=== PATIENT | female | born 1925 | race Caucasian/White ===

== ENCOUNTER 2016-05-17 09:17 | Emergency (ER) | payer MEDICARE ==
[2016-05-17] MEDS ORDERED: Aspirin Low Dose CHEW TAB* 81 MG PO ONE (09:27)
[2016-05-17 09:56] LABS: Hematocrit 40 % (35-47); Hemoglobin 13.2 g/dl (12.0-16.0); Mean Corpuscular HGB Conc 33 g/dl (31-36); Mean Corpuscular Hemoglobin 28 pg (27-31); Mean Corpuscular Volume 85 fL (80-97); Mean Platelet Volume 9 um3 (7.4-10.4); Red Blood Count 4.73 10^6/ul (4.0-5.4); Red Cell Distribution Width 14 % (10.5-15); White Blood Count 5.9 10^3/ul (3.5-10.8)
[2016-05-17 10:16] LABS: Albumin 3.5 g/dL (3.2-5.2); BUN/Creatinine Ratio 20.7 (8-20); Calcium 9.3 mg/dL (8.6-10.3); EGFR African American 84.6 (>60); EGFR Non-African American 65.8 (>60); Globulin 3.6 g/dL (2-4); Potassium 3.8 mmol/L (3.5-5.0); Total Bilirubin 0.5 mg/dL (0.2-1.0); Total Protein 7.1 g/dL (6.4-8.9)
--- NOTE | 2016-05-17 10:26 | RAD ---
INDICATION: Nausea COMPARISON: Similar chest x-ray dated April 11, 2015 TECHNIQUE: Single AP portable view of the chest was obtained. FINDINGS: Image quality is compromised due to the relative inferiority of a portable chest x-ray. There is mild cardiomegaly, ectatic change of the thoracic aorta and mild calcification overlying the arch of the aorta. This appearance is similar to the most recent previous chest x-ray. The lungs are grossly clear. There is no evidence of a large pleural effusion. Visualized bones are normal for the patient's age. IMPRESSION: No radiographic evidence for acute cardiopulmonary abnormality on this portable chest x-ray.
[2016-05-17 10:44] VITALS: BP 165/72
--- NOTE | 2016-05-17 18:12 | ED ---
Humble Parra Billy, scribed for Luis F Mehta MD on 05/17/16 at 1034 . Complex/Multi-Sys Presentation - HPI Summary HPI Summary: Patient is an 89 year-old female sent [place] [facility]. Stewart and Dr. Barragan today for concern of irregular heartbeat at Dr. Barragan's office today. She was being seen by Dr. Barragan to have a cyst removed from her neck when he noticed the arrhythmia. However, in the ED, the patient denies any chest pain, shortness of breath, dizziness, nausea, vomiting, or diarrhea at any point today. She reports that she is completely asymptomatic. She takes 81mg ASA daily but otherwise denies any bloodthinner use. - History Of Current Complaint Chief Complaint: EDDysrhythmPalp Time Seen by Provider: 05/17/16 10:14 Hx Obtained From: Patient Onset/Duration: Resolved Severity Currently: None Location: Negative Aggravating Factor(s): none Alleviating Factor(s): none Associated Signs And Symptoms: Negative: Dizziness, SOB, Chest Pain, Nausea, Vomiting, Diarrhea - Allergies/Home Medications Allergies/Adverse Reactions: Allergies Allergy/AdvReac Type Severity Reaction Status Date / Time Bee Venom Allergy Severe Swelling Verified 01/11/15 12:56 Loteprednol [From Alrex] Allergy Severe Difficulty Verified 01/11/15 12:56 Breathing Ranitidine Allergy Severe Difficulty Verified 01/11/15 12:56 Breathing Sulfa Antibiotics Allergy GI Upset Verified 01/11/15 12:56 Ciprofloxacin [From Cipro] AdvReac Intermediate GI Upset Verified 01/11/15 12:56 PMH/Surg Hx/FS Hx/Imm Hx Endocrine/Hematology History: Denies: Hx Anticoagulant Therapy, Hx Diabetes, Hx Thyroid Disease Cardiovascular History: Reports: Hx Angina, Hx Coronary Artery Disease - 2010 [place]ON[place] [facility] [place] STATES NO PROBLEMS SINCE, Hx Hypercholesterolemia - HLD, Hx Hypertension - ON DAILY MEDS, Hx Myocardial Infarction Comment Only: Other Cardiovascular Problems/Disorders - FOLLOWED BY DR STEWART Respiratory History: Denies: Hx Asthma, Hx Chronic Obstructive Pulmonary Disease (COPD) GI History: Reports: Hx Diverticulosis, Hx Gall Bladder Disease, Hx Gastroesophageal Reflux Disease - TAKES RELIF MED PRN Denies: Hx Ulcer Comment Only: Other GI Disorders - Hx OF DIVERTICULITIS, 1989 COLOSTOMY 1990 REVERSAL History: Reports: Hx Renal Disease - hx abnormal gfr Sensory History: Reports: Hx Hearing Aid - BOTH EARS WILL BE WEARING DAY OF SURGERY Comment Only: Hx Contacts or Glasses - READING Opthamlomology History: Comment Only: Hx Contacts or Glasses - READING Neurological History: Denies: Hx Dementia Psychiatric History: Reports: Hx Anxiety - HAS Rx AVAILABLE PRN USE Denies: Hx Substance Abuse - Cancer History Hx Chemotherapy: No Hx Radiation Therapy: No - Surgical History Surgery Procedure, Year, and Place: 1939 APPENDECTOMY [facility]. 1958 hysterectomy,. 1989 & 1990bowel resection with colostomy & reversal. 1996 traci. UBTOTAL THYROIDECTOMY. 2009 CARDIAC STENT [facility] Hx Anesthesia Reactions: No - Immunization History Date of Tetanus Vaccine: Unk Date of Influenza Vaccine: Fall 2013 Infectious Disease History: No Infectious Disease History: Denies: Hx Clostridium Difficile, Hx Hepatitis, Hx Human Immunodeficiency Virus (HIV), Hx Shingles, Hx Tuberculosis, History Other Infectious Disease, Traveled Outside the [place] in Last 30 Days - Family History Known Family History: Positive: Cardiac Disease, Hypertension - Social History Alcohol Use: None Substance Use Type: Reports: None Smoking Status (MU): Never Smoked Tobacco Have You Smoked in the Last Year: No Review of Systems Negative: Chest Pain Negative: Shortness Of Breath Negative: Vomiting, Diarrhea, Nausea All Other Systems Reviewed And Are Negative: Yes Physical Exam Triage Information Reviewed: Yes Vital Signs On Initial Exam: Initial Vitals Temp Pulse Resp BP Pulse Ox 97.1 F 91 15 152/81 100 05/17/16 09:20 05/17/16 09:20 05/17/16 09:20 05/17/16 09:20 05/17/16 09:20 Vital Signs Reviewed: Yes Appearance: Positive: Well-Appearing, No Pain Distress Skin: Positive: Warm, Skin Color Reflects Adequate Perfusion, Dry Head/Face: Positive: Normal Head/Face Inspection Eyes: Positive: Normal ENT: Positive: Other - Dry mucous membranes Neck: Positive: Supple, Nontender Respiratory/Lung Sounds: Positive: Clear to Auscultation Cardiovascular: Positive: RRR Abdomen Description: Positive: Nontender, Soft Musculoskeletal: Positive: Normal Neurological: Positive: Normal Psychiatric: Positive: Normal AVPU Assessment: Alert - [place] Coma Scale Coma Scale Total: 15 Diagnostics - Vital Signs Vital Signs Temp Pulse Resp BP Pulse Ox 05/17/16 10:00 93 20 161/73 98 05/17/16 09:35 100 153/105 96 05/17/16 09:34 104 94 05/17/16 09:20 97.1 F 91 15 152/81 100 - Laboratory Lab Results: Lab Results 05/17/16 05/17/16 05/17/16 Range/Units 09:46 09:46 09:46 WBC 5.9 (3.5-10.8) 10^3/ul RBC 4.73 (4.0-5.4) 10^6/ul Hgb 13.2 (12.0-16.0) g/dl Hct 40 (35-47) % MCV 85 (80-97) fL MCH 28 (27-31) pg MCHC 33 (31-36) g/dl RDW 14 (10.5-15) % Plt Count 264 (150-450) 10^3/ul MPV 9 (7.4-10.4) um3 Neut % (Auto) 63.8 (38-83) % Lymph % (Auto) 24.7 L (25-47) % [place] % (Auto) 8.6 (1-9) % Eos % (Auto) 2.0 (0-6) % Baso % (Auto) 0.9 (0-2) % Absolute Neuts (auto) 3.8 (1.5-7.7) 10^3/ul Absolute Lymphs (auto) 1.5 (1.0-4.8) 10^3/ul Absolute Monos (auto) 0.5 (0-0.8) 10^3/ul Absolute Eos (auto) 0.1 (0-0.6) 10^3/ul Absolute Basos (auto) 0.1 (0-0.2) 10^3/ul Absolute Nucleated RBC 0 10^3/ul Nucleated RBC % 0 Sodium 139 (133-145) mmol/L Potassium 3.8 (3.5-5.0) mmol/L Chloride 107 (101-111) mmol/L Carbon Dioxide 25 (22-32) mmol/L Anion Gap 7 (2-11) mmol/L BUN 17 (6-24) mg/dL Creatinine 0.82 (0.51-0.95) mg/dL Est GFR ( Amer) 84.6 (>60) Est GFR (Non-Af Amer) 65.8 (>60) BUN/Creatinine Ratio 20.7 H (8-20) Glucose 85 (70-100) mg/dL Lactic Acid 1.0 (0.5-2.0) mmol/L Calcium 9.3 (8.6-10.3) mg/dL Magnesium 2.0 (1.9-2.7) mg/dL Total Bilirubin 0.50 (0.2-1.0) mg/dL AST 15 (13-39) U/L ALT 13 (7-52) U/L Alkaline Phosphatase 71 (34-104) U/L Troponin I 0.00 (<0.04) ng/mL Total Protein 7.1 (6.4-8.9) g/dL Albumin 3.5 (3.2-5.2) g/dL Globulin 3.6 (2-4) g/dL Albumin/Globulin Ratio 1.0 (1-3) Result Diagrams: 05/17/16 09:46 05/17/16 09:46 Lab Statement: Any lab studies that have been ordered have been reviewed, and results considered in the medical decision making process. - Radiology CXR Xray Interpretation: No Acute Changes Radiology Interpretation Completed By: Radiologist - EKG 0927 EKG Interpretation: borderline tachycardia, sinus rhythm 95 bpm, PACs Complex Multi-Symp Course/Dx Course Of Treatment: Ms. Duong presented from Dr. Stewart's office with the concern that she had had a dysrythmia. She was asymptomatic here but had felt her heart race in the office. She was observed on the monitor and labs were normal. I tried to get ahold of Dr. Stewart but was unable. She was D/C'd to [facility] with him. - Diagnoses Provider Diagnoses: Palpitations Discharge - Discharge Plan Condition: Stable Disposition: HOME Patient Education Materials: Palpitations (ED) Referrals: Alberto Barragan MD [Primary Care Provider] - The documentation as recorded by the Humble elaine Billy accurately reflects the service I personally performed and the decisions made by me, Luis F Mehta MD.
== END 2016-05-17 10:43 | disposition home or self-care (01) ==
LOC: ED 09:17
DX: R00.2 Palpitations (principal); R42 Dizziness and giddiness; R06.02 Shortness of breath; R07.9 Chest pain, unspecified; R11.2 Nausea with vomiting, unspecified; R19.7 Diarrhea, unspecified
CPT/HCPCS: 36415; 71010; 80053; 83605; 83735; 84484; 85025; 93005; 99282; A9270-GY

== ENCOUNTER 2016-07-30 07:24 | Emergency (ER) | payer MEDICARE ==
[2016-07-30] MEDS ORDERED: NS 0.9% 1000 ML* 1,000 ML IV ONE (07:49)
[2016-07-30] MEDS ORDERED: Ondansetron INJ* 2 MG/ML VIAL IV ONE (07:49)
[2016-07-30] MEDS ORDERED: Aspirin Low Dose CHEW TAB* 81 MG PO ONE (07:49)
[2016-07-30 08:19] LABS: Hematocrit 42 % (35-47); Mean Corpuscular HGB Conc 33 g/dl (31-36); Mean Corpuscular Hemoglobin 28 pg (27-31); Mean Corpuscular Volume 84 fL (80-97); Mean Platelet Volume 11 um3 (7.4-10.4); Red Cell Distribution Width 14 % (10.5-15); White Blood Count 6.6 10^3/ul (3.5-10.8)
[2016-07-30 08:32] LABS: Albumin 3.9 g/dL (3.2-5.2); BUN/Creatinine Ratio 11.8 (8-20); Calcium 9.5 mg/dL (8.6-10.3); EGFR African American 92.4 (>60); EGFR Non-African American 71.8 (>60); Globulin 3.3 g/dL (2-4); Potassium 3.6 mmol/L (3.5-5.0); Total Bilirubin 0.7 mg/dL (0.2-1.0); Total Protein 7.2 g/dL (6.4-8.9); Troponin I 0.01 ng/mL (<0.04)
[2016-07-30] MEDS ORDERED: Iohexol 300* (CONTRAST) 10 ML SDV IV ONE (09:17)
--- NOTE | 2016-07-30 09:45 | RAD ---
Indication: Chest pain, atrial fibrillation. Single frontal view of the chest performed at 0820 hours was reviewed. Comparison is made with previous exam dated May 17, 2016. No mediastinal shift is noted. Heart is of normal size and configuration. Lung yarbrough appear clear. There is likely prominent costochondral calcifications in the right base. IMPRESSION: NO ACTIVE CARDIOPULMONARY DISEASE IS NOTED.
[2016-07-30] MEDS ORDERED: Iohexol 350* (CONTRAST) 500 ML MDV IV ONE (10:56)
--- NOTE | 2016-07-30 11:41 | RAD ---
Indication: Shortness of breath, elevated d-dimer, abdominal pain. Contrast: Administered 72.0 ml of Contrast -- mgi/ml. CTA of the chest was performed after IV contrast administration. Coronal and sagittal reconstructed images were obtained. The pulmonary arterial tree is well opacified. There are no filling defects present to suggest pulmonary embolus. There is cardiomegaly without evidence of pericardial effusion. The left lobe of the thyroid is enlarged. The heart demonstrates no pericardial effusion. Calcification of the left anterior descending branch of the left coronary artery is noted. The trachea and major bronchi appear patent. The lung aggarwal demonstrate no evidence of alveolar consolidation. Small nodule is noted in the right middle lobe measuring 3 mm. Scarring is noted in the left base posteriorly. Additional nodule is noted in the lingula measuring 5 mm. These were likely present on previous exam of March 07, 2010. Calcified granuloma is noted overlying the right lower lobe just above the right hemidiaphragm. This is unchanged from previous exam. There is no mediastinal or hilar adenopathy. There may be an axial-type hiatal hernia noted. The bony structures demonstrates compression fracture of T11. Age of this is undetermined. This has occurred since March 07, 2010. This compression of approximately 50%. CT of the abdomen and pelvis demonstrates liver to be normal in size. Prominent intrahepatic ducts is noted likely due to postcholecystectomy state. The gallbladder has been resected. The common duct is prominent measuring up to 8 mm. The pancreas demonstrates no mass or pancreatic ductal dilatation. The spleen is normal in size. No adrenal lesions are noted. The kidneys demonstrate symmetric nephrograms. Atherosclerotic aorta is noted. The aorta and inferior vena cava are otherwise unremarkable with no retroperitoneal lymphadenopathy. The lumbar spine is grossly unremarkable aside from multilevel degenerative disc disease. CT of the pelvis demonstrates contrast in the right colon. No dilated loops of bowel are present. No hernias are noted. Patient has had prior partial colectomy. Anastomotic clips are noted in the left lower quadrant. Diverticulosis without definite evidence of diverticulitis is noted. IMPRESSION: NO EVIDENCE OF PULMONARY EMBOLUS IS NOTED. 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 ABDOMEN AND PELVIS DEMONSTRATES NO EVIDENCE OF BOWEL OBSTRUCTION. POSTOPERATIVE CHANGES ARE NOTED IN THE LEFT.
[2016-07-30 13:16] VITALS: BP 134/82
--- NOTE | 2016-07-30 16:53 | ED ---
Medhat Parra Michael, scribed for Britt Garrett MD on 07/30/16 at 0806 . HPI Chest Pain - HPI Summary HPI Summary: 89 y/o female was BIBA to the ED presenting with intermittent episodes of mid- sternal CP that started this morning. Currently at the ED, the pt states the CP has alleviated. She also c/o intermittent episodes of nausea daily for the past 2 weeks, abd pain with palpation, and diaphoresis. The pt denies vomiting. The PMHx is significant for [place]-stent x1 2010 and HTN. The pt's PCP is Dr. Barragan and her finisher denture is Dr. Stewart. - History of Current Complaint Chief Complaint: EDChestPainROMI Time Seen by Provider: 07/30/16 07:49 Hx Obtained From: Patient, EMS, Medical Records Onset/Duration: Started Hours Ago, Still Present Timing: Intermittent, Lasting Hours Initial Severity: Mild Current Severity: None Pain Intensity: 0 Pain Scale Used: 0-10 Numeric Chest Pain Location: Mid Sternal Chest Pain Radiates: No Character: Pressure/Squeezing Aggravating Factor(s): Nothing Alleviating Factor(s): Nothing Associated Signs and Symptoms: Positive: Chest Pain, Nausea, Abdominal Pain. Negative: Vomiting - Allergy/Home Medications Allergies/Adverse Reactions: Allergies Allergy/AdvReac Type Severity Reaction Status Date / Time Bee Venom Allergy Severe Swelling Verified 07/30/16 07:57 Loteprednol [From Alrex] Allergy Severe Difficulty Verified 07/30/16 07:57 Breathing Ranitidine Allergy Severe Difficulty Verified 07/30/16 07:57 Breathing Sulfa Antibiotics Allergy GI Upset Verified 07/30/16 07:57 Ciprofloxacin [From Cipro] AdvReac Intermediate GI Upset Verified 07/30/16 07:57 Home Medications: Home Medications Citalopram TAB* [Celexa TAB*] 10 mg PO DAILY 07/30/16 [History Confirmed ] Trimethoprim TAB* 100 mg PO DAILY 07/30/16 [History Confirmed 07/30/16] PMH/Surg Hx/FS Hx/Imm Hx Previously Healthy: No Endocrine/Hematology History: Denies: Hx Anticoagulant Therapy, Hx Diabetes, Hx Thyroid Disease Cardiovascular History: Reports: Hx Angina, Hx Coronary Artery Disease - 2010 CORONARY STENT [facility] [place] STATES NO PROBLEMS SINCE, Hx Hypercholesterolemia - HLD, Hx Hypertension - ON DAILY MEDS, Hx Myocardial Infarction Comment Only: Other Cardiovascular Problems/Disorders - FOLLOWED BY DR STEWART Respiratory History: Denies: Hx Asthma, Hx Chronic Obstructive Pulmonary Disease (COPD) GI History: Reports: Hx Diverticulosis, Hx Gall Bladder Disease, Hx Gastroesophageal Reflux Disease - TAKES RELIEF MED PRN Denies: Hx Ulcer Comment Only: Other GI Disorders - Hx OF DIVERTICULITIS, 1989 COLOSTOMY 1990 REVERSAL History: Reports: Hx Renal Disease - hx abnormal gfr Sensory History: Reports: Hx Hearing Aid - BOTH EARS WILL BE WEARING DAY OF SURGERY Comment Only: Hx Contacts or Glasses - READING Opthamlomology History: Comment Only: Hx Contacts or Glasses - READING Neurological History: Denies: Hx Dementia Psychiatric History: Reports: Hx Anxiety - HAS Rx AVAILABLE PRN USE Denies: Hx Substance Abuse - Cancer History Hx Chemotherapy: No Hx Radiation Therapy: No - Surgical History Surgery Procedure, Year, and Place: 1939 APPENDECTOMY [facility]. 1958 hysterectomy,. 1989 & 1990bowel resection with colostomy & reversal. 1996 [facility]. UBTOTAL THYROIDECTOMY. 2009 CARDIAC STENT [facility] Hx Anesthesia Reactions: No - Immunization History Date of Tetanus Vaccine: Unk Date of Influenza Vaccine: Fall 2013 Infectious Disease History: No Infectious Disease History: Denies: Hx Clostridium Difficile, Hx Hepatitis, Hx Human Immunodeficiency Virus (HIV), Hx Shingles, Hx Tuberculosis, History Other Infectious Disease, Traveled Outside the in Last 30 Days - Family History Known Family History: Positive: Cardiac Disease, Hypertension - Social History Occupation: Retired Lives: Alone Alcohol Use: None Substance Use Type: Reports: None Smoking Status (MU): Never Smoked Tobacco Have You Smoked in the Last Year: No Review of Systems Positive: Skin Diaphoresis Positive: Chest Pain Respiratory: Negative Positive: Abdominal Pain, Nausea. Negative: Vomiting Genitourinary: Negative Positive: Other - diaphoresis Positive: Headache Psychological: Normal All Other Systems Reviewed And Are Negative: Yes Physical Exam Triage Information Reviewed: Yes Vital Signs On Initial Exam: Initial Vitals Temp Pulse Resp BP Pulse Ox 97.8 F 103 16 163/74 97 07/30/16 07:26 07/30/16 07:26 07/30/16 07:26 07/30/16 07:26 07/30/16 07:26 Vital Signs Reviewed: Yes Appearance: Positive: No Pain Distress, Well-Nourished, Ill-Appearing Skin: Positive: Diaphoretic Head/Face: Positive: Normal Head/Face Inspection Eyes: Positive: Conjunctiva Clear ENT: Positive: Normal ENT inspection, Hearing grossly normal. Negative: Muffled /hoarse voice Neck: Positive: Supple Respiratory/Lung Sounds: Positive: Clear to Auscultation, Decreased Breath Sounds - left base Cardiovascular: Positive: RRR, Pulses are Symmetrical in both Upper and Lower Extremities, Other - a-fib. Negative: Murmur Abdomen Description: Positive: Soft, Other: - mild diffuse tenderness on palpation. Negative: CVA Tenderness (R), CVA Tenderness (L), Distended, Guarding, Splenomegaly Bowel Sounds: Positive: Present Musculoskeletal: Positive: Normal, Strength/ROM Intact Neurological: Positive: Sensory/Motor Intact, Alert, Oriented to Person Place, Time. Negative: Facial Droop, Focal Deficit @, Slurred Speech Psychiatric: Positive: Normal - [place] Coma Scale Coma Scale Total: 15 Diagnostics - Vital Signs Vital Signs Temp Pulse Resp BP Pulse Ox 07/30/16 08:00 85 19 139/80 97 07/30/16 07:57 97 07/30/16 07:38 87 97 07/30/16 07:37 138/71 07/30/16 07:28 98.7 F 85 16 141/81 98 07/30/16 07:26 97.8 F 103 16 163/74 97 - Laboratory Lab Results: Lab Results 07/30/16 07/30/16 07/30/16 Range/Units 07:33 07:33 07:33 WBC 6.6 (3.5-10.8) 10^3/ul RBC 5.00 (4.0-5.4) 10^6/ul Hgb 14.0 (12.0-16.0) g/dl Hct 42 (35-47) % MCV 84 (80-97) fL MCH 28 (27-31) pg MCHC 33 (31-36) g/dl RDW 14 (10.5-15) % Plt Count 176 (150-450) 10^3/ul MPV 11 H (7.4-10.4) um3 Neut % (Auto) 66.7 (38-83) % Lymph % (Auto) 25.7 (25-47) % [place] % (Auto) 6.2 (1-9) % Eos % (Auto) 0.9 (0-6) % Baso % (Auto) 0.5 (0-2) % Absolute Neuts (auto) 4.4 (1.5-7.7) 10^3/ul Absolute Lymphs (auto) 1.7 (1.0-4.8) 10^3/ul Absolute Monos (auto) 0.4 (0-0.8) 10^3/ul Absolute Eos (auto) 0.1 (0-0.6) 10^3/ul Absolute Basos (auto) 0 (0-0.2) 10^3/ul Absolute Nucleated RBC 0.01 10^3/ul Nucleated RBC % 0.1 INR (Anticoag Therapy) 1.09 (0.89-1.11) APTT 27.0 (26.0-36.3) seconds D-Dimer, Quantitative 317 H (Less Than 230) ng/mL Sodium 139 (133-145) mmol/L Potassium 3.6 (3.5-5.0) mmol/L Chloride 105 (101-111) mmol/L Carbon Dioxide 24 (22-32) mmol/L Anion Gap 10 (2-11) mmol/L BUN 9 (6-24) mg/dL Creatinine 0.76 (0.51-0.95) mg/dL Est GFR ( Amer) 92.4 (>60) Est GFR (Non-Af Amer) 71.8 (>60) BUN/Creatinine Ratio 11.8 (8-20) Glucose 162 H (70-100) mg/dL Lactic Acid (0.5-2.0) mmol/L Calcium 9.5 (8.6-10.3) mg/dL Magnesium 2.0 (1.9-2.7) mg/dL Total Bilirubin 0.70 (0.2-1.0) mg/dL AST 16 (13-39) U/L ALT 12 (7-52) U/L Alkaline Phosphatase 65 (34-104) U/L Total Creatine Kinase 37 (10-223) U/L CK-MB (CK-2) 1.5 (0.6-6.3) ng/mL Troponin I 0.01 (<0.04) ng/mL B-Natriuretic Peptide ( - 100) pg/mL Total Protein 7.2 (6.4-8.9) g/dL Albumin 3.9 (3.2-5.2) g/dL Globulin 3.3 (2-4) g/dL Albumin/Globulin Ratio 1.2 (1-3) Amylase 35 (29-103) U/L Lipase 17 (11.0-82.0) U/L Influenza A (Rapid) (Negative) Influenza B (Rapid) (Negative) 07/30/16 07/30/16 07/30/16 Range/Units 07:33 07:33 08:58 WBC (3.5-10.8) 10^3/ul RBC (4.0-5.4) 10^6/ul Hgb (12.0-16.0) g/dl Hct (35-47) % MCV (80-97) fL MCH (27-31) pg MCHC (31-36) g/dl RDW (10.5-15) % Plt Count (150-450) 10^3/ul MPV (7.4-10.4) um3 Neut % (Auto) (38-83) % Lymph % (Auto) (25-47) % [place] % (Auto) (1-9) % Eos % (Auto) (0-6) % Baso % (Auto) (0-2) % Absolute Neuts (auto) (1.5-7.7) 10^3/ul Absolute Lymphs (auto) (1.0-4.8) 10^3/ul Absolute Monos (auto) (0-0.8) 10^3/ul Absolute Eos (auto) (0-0.6) 10^3/ul Absolute Basos (auto) (0-0.2) 10^3/ul Absolute Nucleated RBC 10^3/ul Nucleated RBC % INR (Anticoag Therapy) (0.89-1.11) APTT (26.0-36.3) seconds D-Dimer, Quantitative (Less Than 230) ng/mL Sodium (133-145) mmol/L Potassium (3.5-5.0) mmol/L Chloride (101-111) mmol/L Carbon Dioxide (22-32) mmol/L Anion Gap (2-11) mmol/L BUN (6-24) mg/dL Creatinine (0.51-0.95) mg/dL Est GFR ( Amer) (>60) Est GFR (Non-Af Amer) (>60) BUN/Creatinine Ratio (8-20) Glucose (70-100) mg/dL Lactic Acid 1.7 (0.5-2.0) mmol/L Calcium (8.6-10.3) mg/dL Magnesium (1.9-2.7) mg/dL Total Bilirubin (0.2-1.0) mg/dL AST (13-39) U/L ALT (7-52) U/L Alkaline Phosphatase (34-104) U/L Total Creatine Kinase (10-223) U/L CK-MB (CK-2) (0.6-6.3) ng/mL Troponin I (<0.04) ng/mL B-Natriuretic Peptide 164 H ( - 100) pg/mL Total Protein (6.4-8.9) g/dL Albumin (3.2-5.2) g/dL Globulin (2-4) g/dL Albumin/Globulin Ratio (1-3) Amylase (29-103) U/L Lipase (11.0-82.0) U/L Influenza A (Rapid) Negative (Negative) Influenza B (Rapid) Negative (Negative) 07/30/16 Range/Units 11:30 WBC (3.5-10.8) 10^3/ul RBC (4.0-5.4) 10^6/ul Hgb (12.0-16.0) g/dl Hct (35-47) % MCV (80-97) fL MCH (27-31) pg MCHC (31-36) g/dl RDW (10.5-15) % Plt Count (150-450) 10^3/ul MPV (7.4-10.4) um3 Neut % (Auto) (38-83) % Lymph % (Auto) (25-47) % [place] % (Auto) (1-9) % Eos % (Auto) (0-6) % Baso % (Auto) (0-2) % Absolute Neuts (auto) (1.5-7.7) 10^3/ul Absolute Lymphs (auto) (1.0-4.8) 10^3/ul Absolute Monos (auto) (0-0.8) 10^3/ul Absolute Eos (auto) (0-0.6) 10^3/ul Absolute Basos (auto) (0-0.2) 10^3/ul Absolute Nucleated RBC 10^3/ul Nucleated RBC % INR (Anticoag Therapy) (0.89-1.11) APTT (26.0-36.3) seconds D-Dimer, Quantitative (Less Than 230) ng/mL Sodium (133-145) mmol/L Potassium (3.5-5.0) mmol/L Chloride (101-111) mmol/L Carbon Dioxide (22-32) mmol/L Anion Gap (2-11) mmol/L BUN (6-24) mg/dL Creatinine (0.51-0.95) mg/dL Est GFR ( Amer) (>60) Est GFR (Non-Af Amer) (>60) BUN/Creatinine Ratio (8-20) Glucose (70-100) mg/dL Lactic Acid (0.5-2.0) mmol/L Calcium (8.6-10.3) mg/dL Magnesium (1.9-2.7) mg/dL Total Bilirubin (0.2-1.0) mg/dL AST (13-39) U/L ALT (7-52) U/L Alkaline Phosphatase (34-104) U/L Total Creatine Kinase (10-223) U/L CK-MB (CK-2) (0.6-6.3) ng/mL Troponin I 0.00 (<0.04) ng/mL B-Natriuretic Peptide ( - 100) pg/mL Total Protein (6.4-8.9) g/dL Albumin (3.2-5.2) g/dL Globulin (2-4) g/dL Albumin/Globulin Ratio (1-3) Amylase (29-103) U/L Lipase (11.0-82.0) U/L Influenza A (Rapid) (Negative) Influenza B (Rapid) (Negative) Result Diagrams: 07/30/16 07:33 07/30/16 07:33 Lab Statement: Any lab studies that have been ordered have been reviewed, and results considered in the medical decision making process. - Radiology CXR Xray Interpretation: No Acute Changes Radiology Interpretation Completed By: Radiologist - CT CTA Chest/ABD/PEL CT Interpretation: No Acute Changes - : NO EVIDENCE OF PULMONARY EMBOLUS IS NOTED. 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 ABDOMEN AND PELVIS DEMONSTRATES NO EVIDENCE OF BOWEL OBSTRUCTION. POSTOPERATIVE CHANGES ARE NOTED IN THE LEFT. CT Interpretation Completed By: Radiologist - EKG EK EKG Rhythm: Atrial Fibrillation EKG Interpretation: nml IV conduction. QTc prolonged. nml axis-22. EKG Comparison: Other - compared to EKG on 05/17/16 changed from sinus tachycardia to a-fib. On 04/11/15 pt rhythm was in a-fib. EK EKG Rhythm: Sinus Rhythm - 93 bpm with supraventricular bigeminy EKG Interpretation: nml AV. nml IV. PRolonged QT interval:519. axis:-2. Chest Pain Course/Dx - Course Course Of Treatment: Discussed patient care with Dr. Fall (Hospitalist) at 1055. Dr. Fall accepts the patient as an admission. Upon further work up the patient is safe to discharge home as pt has had stress test in Apr 2016 that was normal, CTA chest is normal and 2 troponins are normal. - Chest Pain Differential Diagnosis/HQI/PQRI: Acute [place], ACS, CHF, Lower Respiratory Infection , Pulmonary Embolism - Diagnoses Provider Diagnoses: Chest pain, Abdominal pain in female - Critical Care Time Critical Care Time: 30-74 min - 30min Discharge - Discharge Plan Condition: Stable Disposition: HOME Prescriptions: Pantoprazole TAB (NF) [Protonix TAB (NF)] 40 mg PO DAILY #30 tab Patient Education Materials: Chest Pain (ED), Acute Nausea and Vomiting (ED) Referrals: Alberto Barragan MD [Primary Care Provider] - 2 Days The documentation as recorded by the Medhat elaine Michael accurately reflects the service I personally performed and the decisions made by , Britt Garrett MD.
--- NOTE | 2016-07-30 18:04 | CONS ---
CONSULTATION REPORT: DATE OF CONSULT: 07/30/16 REQUESTING PHYSICIAN FOR CONSULT: Dr. Britt Garrett. REASON FOR MEDICAL CONSULT: Evaluation for admission. HISTORY OF PRESENT ILLNESS: Ms. Duong is an 89-year-old female patient that presented to the ER today. Her chief complaint she told me was nausea. She said that she has had nausea off and on for the last 3 weeks, particularly 5/7 days a week she feels nauseous, particularly when she wakes up first thing in the morning. She does carry a history of coronary artery disease, history of OK , hypothyroidism, GERD, hypertension, anxiety, hyperlipidemia, and overactive bladder. She does say she feels nauseous. She denies having any abdominal pain. She specifically denied having any chest pain. She says she recently saw Dr. Stewart and was evaluated and it was said her heart was fine. She denies having any diarrhea. She denies having any abdominal discomfort and she denied having any fevers or chills. She said that she felt nauseous, but she did not vomit, although now she says she feels hungry and she does state at times that she feels better after she does eat. She was concerned because of this and it was not getting any better, so she came into the hospital to be evaluated. She denied having any loss of consciousness or any skin ulcerations or any skin pruritus or having any lightheadedness or any loss of consciousness. She came to the ER today, was evaluated by Dr. Garrett, there was concern because she apparently had told Dr. Garrett that she had some right-sided chest pain, although she did not illicit this to me and I asked her several times, so there was concern for initially chest pressure and need for possible admission. We were asked to evaluate. PAST MEDICAL HISTORY: Significant for: 1. CAD. 2. OK. 3. Hypothyroidism. 4. GERD. 5. Hypertension. 6. Anxiety. 7. Hyperlipidemia. 8. Overactive bladder. PAST SURGICAL HISTORY: She has had: 1. Cardiac cath. 2. Laparoscopic cholecystectomy. 3. Hysterectomy. 4. Colon resection. MEDICATIONS: Home medications include: 1. Celexa 10 mg p.o. daily. 2. Remeron 15 mg at bedtime. 3. Cardizem 120 mg daily. 4. Lipitor 10 mg at bedtime. 5. Zofran 4 mg p.o. every 8 hours as needed. 6. Trimethoprim 100 mg daily. ALLERGIES TO MEDICATIONS: Include ZANTAC, CIPRO, SULFA, LOTEPREDNOL, BEE VENOM , CIPRO. FAMILY HISTORY: Mother had a history of CVA, father had a history of OK. SOCIAL HISTORY: The patient does not smoke and does not drink. Surrogate decision maker is her son. REVIEW OF SYSTEMS: There is no documented fever. She denied having any subsequent weight change. There was no double vision. There was no ear discharge. She denies having any rhinorrhea. No sore throat. No thyroid enlargement. Again, there was no admission to chest pain to ak. She did admit to having nausea, but there was no vomiting. No dysuria, no frequency. No seizure, no loss of consciousness. No pruritus and no skin ulcerations. Review of 14 systems completed, all others negative. PHYSICAL EXAM: Reveals vital signs: Blood pressure 147/76, pulse 84, respirations 18, O2 sat 98%, and temperature 98.7. General: At this time, Ms. Duong is an 89- year-old female patient. She is sitting in the ER stretcher, she does not appear to be in any acute distress. HEENT: Head is atraumatic, normocephalic. Eyes: EOMs intact. Sclerae anicteric and not pale. Throat: Oral mucosa appears to be moist. No oropharyngeal erythema. Neck: Supple. Lungs: Clear to auscultation. No wheezes, rales, or rhonchi. Heart sounds S1 and S2. Regular rate and rhythm. No murmurs, rubs, or gallops. Abdomen: Soft , flat, and nontender. Bowel sounds present. Extremities: Pulses 2+ throughout. She is able to move all 4 extremities with 5/5 strength. Neurologically, the patient is awake, alert, and oriented x3. Tongue midline, biomedical engineering internship are equal. No gross focal deficits. Skin: Intact. DIAGNOSTIC STUDIES/LAB DATA: Today revealed WBC 6.6, RBC of 5.00, hemoglobin 14.0, hematocrit 42, platelet count of 176. INR of 1.09, PTT of 27.0. D-dimer at 317. Sodium 139, potassium 3.6, chloride of 105, bicarb 24, BUN 9, creatinine of 0.76, glucose 162, lactate 1.7, calcium 9.5, mag 2.0. Total bili 0.7, AST 15, ALT 12, alk phos 55. CK 37, CK-MB 1.5. Troponin 0.0, repeat troponin was 0. Lipase 17, amylase 35. Serology negative for flu. She had a chest, abdomen, and pelvis CTA, which revealed no evidence for pulmonary embolism noted. 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 Abdomen and pelvis demonstrate no evidence of bowel obstruction. Postoperative changes are noted in the left. She did have a chest x-ray obtained today, which showed no active cardiopulmonary disease. She had an EKG obtained today as well which showed what appears to be a sinus rhythm with PAC. She had no ST elevations or T-wave inversions were noted. It is reviewed to the previous EKG. She has had similar present EKGs in the past with PVCs. QTc is noted to be 500. Old medical records were reviewed. She had a normal stress test done about [address] Stewart. Old medical records were reviewed. ASSESSMENT AND PLAN: Ms. Duong is an 89-year-old female patient that comes in today with a main complaint of nausea. Hospitalist service was asked to evaluate in consult. My recommendations at this point are: 1. Nausea. I would recommend followup with her primary. At this point, she does not appear to have any acute abdominal issues. She is not vomiting here. She actually feels hungry. I question this may be gastroesophageal reflux disease. We could consider sending her on Zofran, but we will need to do this with caution as her QTc is long. May need to consider adding something like Carafate or maybe a PPI for the time being and she can follow up with the primary. She may need an upper endoscopy to evaluate the nausea, but she at this point does not appear to have an acute issue that is causing the nausea and again, she does state that she feels hungry. 2. Chest discomfort. Again, she did not elucidate any chest pain to me, but she had a normal stress, negative trops, and a negative CT of the chest. I think she can again be discharged to follow up with her primary. 3. Coronary artery disease. Continue meds as prescribed. 4. Anxiety. Continue current medical regimen. 5. Hypothyroidism. Continue her meds as prescribed. 6. Gastroesophageal reflux disease. Again, she is not on any medications for this. Maybe, we could consider adding a PPI therapy for the time being. 7. Anxiety. Continue meds as prescribed. 8. Overactive bladder. Follow with the primary. TIME SPENT: On the consult 60 minutes, greater than half the time spent face-to - face with the patient obtaining my history and physical, other half the time spent going over the plan of care with the patient and implementing the plan of care. I did discuss the plan of care with my attending, Dr. Fall; he is in agreement. ALICIA DAVILA NP CC: [id number]/CPS #: [id number] LATRICIA
== END 2016-07-30 13:15 | disposition home or self-care (01) ==
LOC: ED 07:24
DX: R07.9 Chest pain, unspecified (principal); R10.9 Unspecified abdominal pain; I25.10 Atherosclerotic heart disease of native coronary artery without angina pectoris; I25.2 Old myocardial infarction; E03.9 Hypothyroidism, unspecified; K21.9 Gastro-esophageal reflux disease without esophagitis; F41.9 Anxiety disorder, unspecified; E78.5 Hyperlipidemia, unspecified; Z88.2 Allergy status to sulfonamides; N32.81 Overactive bladder
CPT/HCPCS: 36415; 71010; 71275; 74177; 80053; 82150; 82550; 82553; 83605; 83690; 83735; 83880; 84484; 85025; 85379; 85610; 85730; 87502; 93005; 96360; 96374; 99284; J2405; Q9967

== ENCOUNTER 2016-08-02 17:58 | Emergency (ER) | payer MEDICARE ==
[2016-08-02 18:49] LABS: Hematocrit 40 % (35-47); Hemoglobin 13.1 g/dl (12.0-16.0); Mean Corpuscular HGB Conc 33 g/dl (31-36); Mean Corpuscular Hemoglobin 28 pg (27-31); Mean Corpuscular Volume 83 fL (80-97); Mean Platelet Volume 10 um3 (7.4-10.4); Red Blood Count 4.76 10^6/ul (4.0-5.4); Red Cell Distribution Width 14 % (10.5-15); White Blood Count 5.6 10^3/ul (3.5-10.8)
[2016-08-02 19:08] LABS: Troponin I 0.01 ng/mL (<0.04)
[2016-08-02 19:09] LABS: ALT 12 U/L (7-52); AST 17 U/L (13-39); Albumin 3.7 g/dL (3.2-5.2); Alkaline Phosphatase 60 U/L (34-104); Anion Gap 7 mmol/L (2-11); BUN/Creatinine Ratio 10.3 (8-20); Blood Urea Nitrogen 9 mg/dL (6-24); C Reactive Protein < 1.00 mg/L (< 5.00); CO2 Carbon Dioxide 25 mmol/L (22-32); Calcium 9.2 mg/dL (8.6-10.3); Chloride 106 mmol/L (101-111); Creatine Kinase 67 U/L (10-223); EGFR Non-African American 61.4 (>60); Glucose 109 mg/dL (70-100); Lipase 19 U/L (11.0-82.0); Potassium 3.3 mmol/L (3.5-5.0); Sodium 138 mmol/L (133-145); Total Protein 6.7 g/dL (6.4-8.9)
--- NOTE | 2016-08-02 19:16 | RAD ---
INDICATION: Chest pain. COMPARISON: Comparison is made with a prior chest x-ray study from July 30, 2016. TECHNIQUE: A portable view of the chest was obtained. FINDINGS: The heart is within normal limits in size. Note is made of a mildly tortuous ectatic thoracic aorta. The lungs are underinflated and clear. No pleural effusion is seen. IMPRESSION: NO EVIDENCE FOR ACUTE DISEASE.
[2016-08-02 19:25] LABS: TSH (Thyroid Stimulating Horm) < 0.03 mcIU/mL (0.34-5.60)
--- NOTE | 2016-08-02 20:22 | ED ---
Marilynn Parra Matthew, scribed for Kranthi Lara MD on 08/02/16 at 1922 . HPI Chest Pain - HPI Summary HPI Summary: An 89 y/o male presents to the ED with constant, left sided chest pain since 3 weeks ago. She states that the pain is not as severe as when she was in the ED on 07/30. Her PCP told her that she should presents to the ED. She hasn't taken any medications [employer] except for a baby aspirin. Associated symptoms include diaphoresis. - History of Current Complaint Chief Complaint: EDChestPainROMI Time Seen by Provider: 08/02/16 19:15 Hx Obtained From: Patient Onset/Duration: Started Weeks Ago, Still Present Timing: Constant Initial Severity: Moderate Current Severity: Mild Pain Intensity: 3 Pain Scale Used: 0-10 Numeric Chest Pain Location: Left Lateral Chest Pain Radiates: No Aggravating Factor(s): Nothing Alleviating Factor(s): Nothing Associated Signs and Symptoms: Positive: Chest Pain, Diaphoresis - Allergy/Home Medications Allergies/Adverse Reactions: Allergies Allergy/AdvReac Type Severity Reaction Status Date / Time Bee Venom Allergy Severe Swelling Verified 07/30/16 07:57 Loteprednol [From Alrex] Allergy Severe Difficulty Verified 07/30/16 07:57 Breathing Ranitidine Allergy Severe Difficulty Verified 07/30/16 07:57 Breathing Sulfa Antibiotics Allergy GI Upset Verified 07/30/16 07:57 Ciprofloxacin [From Cipro] AdvReac Intermediate GI Upset Verified 07/30/16 07:57 PMH/Surg Hx/FS Hx/Imm Hx Endocrine/Hematology History: Denies: Hx Anticoagulant Therapy, Hx Diabetes, Hx Thyroid Disease Cardiovascular History: Reports: Hx Angina, Hx Coronary Artery Disease - 2009 CORONARY STENT [facility] [place], STATES NO PROBLEMS SINCE, Hx Hypercholesterolemia - HLD, Hx Hypertension - ON DAILY MEDS, Hx Myocardial Infarction Comment Only: Other Cardiovascular Problems/Disorders - FOLLOWED BY DR TATUM Respiratory History: Denies: Hx Asthma, Hx Chronic Obstructive Pulmonary Disease (COPD) GI History: Reports: Hx Diverticulosis, Hx Gall Bladder Disease, Hx Gastroesophageal Reflux Disease - TAKES RELIEF MED PRN Denies: Hx Ulcer Comment Only: Other GI Disorders - Hx OF DIVERTICULITIS, 1989 COLOSTOMY 1990 REVERSAL History: Reports: Hx Renal Disease - hx abnormal gfr Sensory History: Reports: Hx Hearing Aid - BOTH EARS WILL BE WEARING DAY OF SURGERY Comment Only: Hx Contacts or Glasses - READING Opthamlomology History: Comment Only: Hx Contacts or Glasses - READING Neurological History: Denies: Hx Dementia Psychiatric History: Reports: Hx Anxiety - HAS Rx AVAILABLE PRN USE Denies: Hx Substance Abuse - Cancer History Hx Chemotherapy: No Hx Radiation Therapy: No - Surgical History Surgery Procedure, Year, and Place: 1939 APPENDECTOMY [facility]. 1958 hysterectomy,. 1989 & 1990bowel resection with colostomy & reversal. 1996 traci. UBTOTAL THYROIDECTOMY. 2009 CARDIAC STENT [facility] Hx Anesthesia Reactions: No - Immunization History Date of Tetanus Vaccine: Unk Date of Influenza Vaccine: Fall 2013 Infectious Disease History: No Infectious Disease History: Denies: Hx Clostridium Difficile, Hx Hepatitis, Hx Human Immunodeficiency Virus (HIV), Hx Shingles, Hx Tuberculosis, History Other Infectious Disease, Traveled Outside the in Last 30 Days - Family History Known Family History: Positive: Cardiac Disease, Hypertension - Social History Alcohol Use: None Substance Use Type: Reports: None Smoking Status (MU): Never Smoked Tobacco Have You Smoked in the Last Year: No Review of Systems Positive: Skin Diaphoresis Eyes: Negative ENT: Negative Positive: Chest Pain Respiratory: Negative Gastrointestinal: Negative Genitourinary: Negative Musculoskeletal: Negative Skin: Negative Neurological: Negative Psychological: Normal All Other Systems Reviewed And Are Negative: Yes Physical Exam Triage Information Reviewed: Yes Vital Signs On Initial Exam: Initial Vitals Temp Pulse Resp BP Pulse Ox 96.3 F 60 17 148/73 100 08/02/16 18:01 08/02/16 18:01 08/02/16 18:01 08/02/16 18:01 08/02/16 18:01 Vital Signs Reviewed: Yes Appearance: Positive: Well-Appearing, No Pain Distress Skin: Positive: Warm Head/Face: Positive: Normal Head/Face Inspection Eyes: Positive: BRIGITTE ENT: Positive: Hearing grossly normal Neck: Positive: Supple Cardiovascular: Positive: RRR Abdomen Description: Positive: Nontender, Soft Bowel Sounds: Positive: Present Musculoskeletal: Positive: Strength/ROM Intact Neurological: Positive: Sensory/Motor Intact, Alert, Oriented to Person Place, Time Psychiatric: Positive: Affect/Mood Appropriate - [place] Coma Scale Coma Scale Total: 15 Diagnostics - Vital Signs Vital Signs Temp Pulse Resp BP Pulse Ox 08/02/16 19:00 90 24 170/143 95 08/02/16 18:30 50 19 154/93 97 08/02/16 18:25 148/82 08/02/16 18:22 16 08/02/16 18:15 97.4 F 80 16 148/82 98 08/02/16 18:01 96.3 F 60 17 148/73 100 - Laboratory Lab Results: Lab Results 08/02/16 08/02/16 08/02/16 Range/Units 18:35 18:35 18:35 WBC 5.6 (3.5-10.8) 10^3/ul RBC 4.76 (4.0-5.4) 10^6/ul Hgb 13.1 (12.0-16.0) g/dl Hct 40 (35-47) % MCV 83 (80-97) fL MCH 28 (27-31) pg MCHC 33 (31-36) g/dl RDW 14 (10.5-15) % Plt Count 169 (150-450) 10^3/ul MPV 10 (7.4-10.4) um3 Neut % (Auto) 60.3 (38-83) % Lymph % (Auto) 28.0 (25-47) % [place] % (Auto) 10.1 H (1-9) % Eos % (Auto) 0.9 (0-6) % Baso % (Auto) 0.7 (0-2) % Absolute Neuts (auto) 3.4 (1.5-7.7) 10^3/ul Absolute Lymphs (auto) 1.6 (1.0-4.8) 10^3/ul Absolute Monos (auto) 0.6 (0-0.8) 10^3/ul Absolute Eos (auto) 0 (0-0.6) 10^3/ul Absolute Basos (auto) 0 (0-0.2) 10^3/ul Absolute Nucleated RBC 0 10^3/ul Nucleated RBC % 0.1 Sodium 138 (133-145) mmol/L Potassium 3.3 L (3.5-5.0) mmol/L Chloride 106 (101-111) mmol/L Carbon Dioxide 25 (22-32) mmol/L Anion Gap 7 (2-11) mmol/L BUN 9 (6-24) mg/dL Creatinine 0.87 (0.51-0.95) mg/dL Est GFR ( Amer) 79.0 (>60) Est GFR (Non-Af Amer) 61.4 (>60) BUN/Creatinine Ratio 10.3 (8-20) Glucose 109 H (70-100) mg/dL Lactic Acid 1.1 (0.5-2.0) mmol/L Calcium 9.2 (8.6-10.3) mg/dL Total Bilirubin 0.50 (0.2-1.0) mg/dL AST 17 (13-39) U/L ALT 12 (7-52) U/L Alkaline Phosphatase 60 (34-104) U/L Total Creatine Kinase 67 (10-223) U/L CK-MB (CK-2) 3.0 (0.6-6.3) ng/mL Troponin I 0.01 (<0.04) ng/mL C-Reactive Protein < 1.00 (< 5.00) mg/L B-Natriuretic Peptide ( - 100) pg/mL Total Protein 6.7 (6.4-8.9) g/dL Albumin 3.7 (3.2-5.2) g/dL Globulin 3.0 (2-4) g/dL Albumin/Globulin Ratio 1.2 (1-3) Lipase 19 (11.0-82.0) U/L TSH Pending 08/02/16 Range/Units 18:35 WBC (3.5-10.8) 10^3/ul RBC (4.0-5.4) 10^6/ul Hgb (12.0-16.0) g/dl Hct (35-47) % MCV (80-97) fL MCH (27-31) pg MCHC (31-36) g/dl RDW (10.5-15) % Plt Count (150-450) 10^3/ul MPV (7.4-10.4) um3 Neut % (Auto) (38-83) % Lymph % (Auto) (25-47) % [place] % (Auto) (1-9) % Eos % (Auto) (0-6) % Baso % (Auto) (0-2) % Absolute Neuts (auto) (1.5-7.7) 10^3/ul Absolute Lymphs (auto) (1.0-4.8) 10^3/ul Absolute Monos (auto) (0-0.8) 10^3/ul Absolute Eos (auto) (0-0.6) 10^3/ul Absolute Basos (auto) (0-0.2) 10^3/ul Absolute Nucleated RBC 10^3/ul Nucleated RBC % Sodium (133-145) mmol/L Potassium (3.5-5.0) mmol/L Chloride (101-111) mmol/L Carbon Dioxide (22-32) mmol/L Anion Gap (2-11) mmol/L BUN (6-24) mg/dL Creatinine (0.51-0.95) mg/dL Est GFR ( Amer) (>60) Est GFR (Non-Af Amer) (>60) BUN/Creatinine Ratio (8-20) Glucose (70-100) mg/dL Lactic Acid (0.5-2.0) mmol/L Calcium (8.6-10.3) mg/dL Total Bilirubin (0.2-1.0) mg/dL AST (13-39) U/L ALT (7-52) U/L Alkaline Phosphatase (34-104) U/L Total Creatine Kinase (10-223) U/L CK-MB (CK-2) (0.6-6.3) ng/mL Troponin I (<0.04) ng/mL C-Reactive Protein (< 5.00) mg/L B-Natriuretic Peptide 219 H ( - 100) pg/mL Total Protein (6.4-8.9) g/dL Albumin (3.2-5.2) g/dL Globulin (2-4) g/dL Albumin/Globulin Ratio (1-3) Lipase (11.0-82.0) U/L TSH Result Diagrams: 08/02/16 18:35 08/02/16 18:35 Lab Statement: Any lab studies that have been ordered have been reviewed, and results considered in the medical decision making process. - Radiology CXR Xray Interpretation: No Acute Changes - IMPRESSION: NO EVIDENCE FOR ACUTE DISEASE. Radiology Interpretation Completed By: Radiologist - EKG 18:12 Cardiac Rate: NL - 89 bpm EKG Rhythm: Sinus Rhythm Ectopy: PACs - Occasional EKG Interpretation: No STEMI Re-Evaluation - Re-Evaluation First Eval Change: Improved - results d/w pt Chest Pain Course/Dx - Course Assessment/Plan: An 89 y/o male presents to the ED with constant, left sided chest pain since 3 weeks ago. She states that the pain is not as severe as when she was in the ED on 07/30. Her PCP told her that she should presents to the ED. She hasn't taken any medications [employer] except for a baby aspirin. Associated symptoms include diaphoresis. CXR shows no evidence for acute disease. Labs were reviewed. EKG shows sinus rhythm with occasional PACs . The patient will be discharged home with PCP follow-up. - Diagnoses Provider Diagnoses: Chest pain Discharge - Discharge Plan Condition: Stable Disposition: HOME Patient Education Materials: Chest Pain (ED) Referrals: Alberto Barragan MD [Primary Care Provider] - 2 Days Additional Instructions: Please follow-up with your primary care physician in 2 days. The documentation as recorded by the Marilynn elaine Matthew accurately reflects the service I personally performed and the decisions made by me, Kranthi Lara MD.
[2016-08-03 06:11] VITALS: BP 158/75
[2016-08-03 10:18] LABS: Free T4 1.95 ng/dL (0.61-1.12)
[2016-08-03 10:22] LABS: Total T3 1.19 ng/mL (0.87-1.78)
== END 2016-08-02 21:07 | disposition home or self-care (01) ==
LOC: ED 17:58
DX: R07.9 Chest pain, unspecified (principal); R61 Generalized hyperhidrosis
CPT/HCPCS: 36415; 71010; 80053; 82550; 82553; 83605; 83690; 83880; 84436; 84439; 84443; 84479; 84484; 85025; 85379; 85610; 85730; 86140; 93005; 99282

== ENCOUNTER 2016-09-11 10:46 | Emergency (ER) | payer MEDICARE ==
[2016-09-11] MEDS ORDERED: Fluorescein Sodium TOPICAL* 1 MG TEST OPHTHALMIC ONE (12:41)
[2016-09-11 12:52] VITALS: BP 150/83
--- NOTE | 2016-09-11 12:58 | UC ---
I, Oh,Soohangelicaun, scribed for Ting Fall MD on 09/11/16 at 1249 . Eye Complaint HPI - HPI Summary HPI Summary: This 89 y/o female presents to [facility] for left eye discomfort since this morning. Pt was spray painting something outdoor when she accidentally got some spray toward her eyes. Pt was wearing eye glasses at time of exposure. Pt did not feel like she got any pain in her eye, but decided to visit [facility] to have it checked. Pt denies vision changes, eye pain, eye tearing. States does feel " a little wet" inside her eye. . Negative vision change, pain, or eye discharge. Pt without any complaints - just wanted to be checked. PMHx includes HTN, HLD, ID s/p 1x stent in 2009, and diverticulitis s/p resection. PSHx includes appy and traci. Nonsmoker and nondrinker. Primary care involves [facility] [employer] [facility] in [place]. Med list is reviewed and confirmed. - History of Current Complaint Chief Complaint: UCEye Stated Complaint: POSS PAINT IN EYE Time Seen by Provider: 09/11/16 12:27 Hx Obtained From: Patient, Medical Records Onset/Duration: Sudden Onset, Lasting Hours, Still Present Timing: Constant Character: Foreign Body Sensation - left eye Aggravating Factor(s): Nothing Alleviating Factor(s): Nothing Associated Signs And Symptoms: Negative: Drainage (Clear), Drainage (Purulent), Vision Impairment Left - Allergies/Home Medications Allergies/Adverse Reactions: Allergies Allergy/AdvReac Type Severity Reaction Status Date / Time Bee Venom Allergy Severe Swelling Verified 07/30/16 07:57 Loteprednol [From Alrex] Allergy Severe Difficulty Verified 07/30/16 07:57 Breathing Ranitidine Allergy Severe Difficulty Verified 07/30/16 07:57 Breathing Sulfa Antibiotics Allergy GI Upset Verified 07/30/16 07:57 Ciprofloxacin [From Cipro] AdvReac Intermediate GI Upset Verified 07/30/16 07:57 PMH/Surg Hx/FS Hx/Imm Hx Previously Healthy: Yes Endocrine History: Dyslipidemia Cardiovascular History: Cardiac Disease, Hypertension, Myocardial Infarction Other History Of: Negative For: Anticoagulant Therapy - Surgical History Surgical History: Yes Surgery Procedure, Year, and Place: 1939 APPENDECTOMY [facility]. 1958 hysterectomy,. 1989 & 1990bowel resection with colostomy & reversal. 1996 traci. UBTOTAL THYROIDECTOMY. 2009 CARDIAC STENT [facility] - Family History Known Family History: Positive: Cardiac Disease, Hypertension - Social History Occupation: Retired Lives: Alone Alcohol Use: None Substance Use Type: None Smoking Status (MU): Never Smoked Tobacco Have You Smoked in the Last Year: No - Immunization History Most Recent Influenza Vaccination: FALL 2012 Most Recent Tetanus Shot: UP TO DATE Most Recent Pneumonia Vaccination: UNSURE Review of Systems Constitutional: Negative Skin: Negative Eyes: Other - FB in left eye sensation ENT: Negative Respiratory: Negative Cardiovascular: Negative Gastrointestinal: Negative Genitourinary: Negative Motor: Negative Neurovascular: Negative Musculoskeletal: Negative Neurological: Negative Psychological: Negative All Other Systems Reviewed And Are Negative: Yes Physical Exam Triage Information Reviewed: Yes Appearance: Well-Appearing, No Pain Distress, Well-Nourished Vital Signs: Initial Vital Signs Temp 98.4 F 09/11/16 10:48 Pulse 84 09/11/16 10:48 Resp 16 09/11/16 10:48 BP 134/56 09/11/16 10:48 Pulse Ox 99 09/11/16 10:48 Vital Signs Reviewed: Yes Eyes: Positive: Conjunctiva Clear, Conjunctiva Inflamed, Discharge, Other: - BRIGITTE, EOM intact and full no injection no photophobia crisp fundoscopic margins b/l no fluorecene uptake No fb in everted lids ENT Exam: Normal ENT: Positive: Hearing grossly normal, Pharynx normal, TMs normal Neck: Positive: Supple, Nontender, No Lymphadenopathy Respiratory Exam: Normal Respiratory: Positive: Normal breath sounds Cardiovascular Exam: Normal Cardiovascular: Positive: RRR, No Murmur, Pulses Normal, Brisk Capillary Refill Abdominal Exam: Normal Abdomen Description: Positive: Nontender, No Organomegaly, Soft Bowel Sounds: Positive: Present Musculoskeletal Exam: Normal Musculoskeletal: Positive: Strength Intact Neurological Exam: Normal Neurological: Positive: Alert Psychological Exam: Normal Psychological: Positive: Normal Response To Family Skin Exam: Normal Eye Complaint Course/Dx - Course Course Of Treatment: Pt with concern for exposure paint to left eye from spray paint. Pt without any eye complaint - requested eval for reassurance. no fb, eye irritation noted on exam. No fluorescene uptake. reassuance. glasses cleaned. return prn - Differential Dx/Diagnosis Provider Diagnoses: eye foreign body exposure Discharge - Discharge Plan Condition: Stable Disposition: HOME Patient Education Materials: Eye Foreign Body (ED) Referrals: Alberto Barragan MD [Primary Care Provider] - Additional Instructions: The doctor did not see any evidence of pain or injury to your eye wear protective lenses when using paint or chemical wear your glasses as previously prescribed contact your doctor or return with questions or concerns The documentation as recorded by the Juanjo elaine Soohyun accurately reflects the service I personally performed and the decisions made by , Ting Fall MD.
== END 2016-09-11 12:54 | disposition home or self-care (01) ==
LOC: UCEAST 10:46
DX: Z03.89 Encounter for observation for other suspected diseases and conditions ruled out (principal); I10 Essential (primary) hypertension; E78.5 Hyperlipidemia, unspecified; I25.2 Old myocardial infarction
CPT/HCPCS: 99211; A9270-GY; G0463